=== PATIENT | female | born 1975 | race Native Hawaiian/Other Pacific Islander ===

== ENCOUNTER 2020-05-23 17:15 | Outpatient (CLI) | payer OTHER ==
[2020-05-23 17:48] LABS: PLATELET COUNT 267 K/uL (152-353)
[2020-05-23 18:15] LABS: POTASSIUM 4.3 mmol/L (3.6-5.2)
== END 2020-05-23 21:07 | disposition home or self-care (01) ==
LOC: LAB 17:15
PROVIDERS: ATTEND Physician Assistant
DX: Z13.0 Encounter for screening for diseases of the blood and blood-forming organs and certain disorders involving the immune mechanism (principal); Z13.220 Encounter for screening for lipoid disorders; Z13.29 Encounter for screening for other suspected endocrine disorder
CPT/HCPCS: 80053; 80061; 83036; 84443; 85027